=== PATIENT | female | born 1945 | race Caucasian/White ===

== ENCOUNTER 2019-07-24 16:19 | Emergency (ER) | payer MEDICARE, MEDICAID ==
[~2019-07-24] VITALS: Ht 152.4 cm; Wt 81.6 kg
--- NOTE | 2019-07-24 17:00 | NUR ---
Dr Lutz at the bedside for MSE.
[2019-07-24 17:06] VITALS: BP 154/61
--- NOTE | 2019-07-24 17:06 | NUR ---
Patient discharged to home in stable conditon. Written and verbal after care instructions given. Patient and pt's daughter verbalize understanding of instructions.
== END 2019-07-24 17:08 | disposition home or self-care (01) ==
LOC: ER 16:19
DX: S92.355A Nondisplaced fracture of fifth metatarsal bone, left foot, initial encounter for closed fracture (principal); I10 Essential (primary) hypertension; E11.9 Type 2 diabetes mellitus without complications; F32.9 Major depressive disorder, single episode, unspecified; Z88.2 Allergy status to sulfonamides; X50.1XXA Overexertion from prolonged static or awkward postures, initial encounter; Y93.89 Activity, other specified; Y92.89 Other specified places as the place of occurrence of the external cause; Y99.8 Other external cause status
CPT/HCPCS: 73610; 73630; A4663